=== PATIENT | female | born 1995 | race Caucasian/White ===

== ENCOUNTER 2017-03-15 12:02 | Emergency (ER) | payer BC, MEDICAID ==
[2017-03-15 13:24] VITALS: BP 119/70
[2017-03-15] MEDS ORDERED: Acetaminophen TAB* 325 MG PO ONE (13:39)
--- NOTE | 2017-03-15 13:50 | UC ---
Throat Pain/Nasal Daron HPI - HPI Summary HPI Summary: 22 yo female female with EGA of about 11 wks presents with a 2 week hx of sinus pressure pain/WOO/post nasal drip /cough/nausea and vomiting Has felt feverish at times no UTI symptoms Has had her first OB appt and is on PNVs NO SOB - History of Current Complaint Chief Complaint: UCGeneralIllness Stated Complaint: FLU SXS/3 MONTHS PREG. Time Seen by Provider: 03/15/17 13:26 Hx Last Menstrual Period: 10/21/16 and 11/05/16 Onset/Duration: Gradual Onset, Lasting Weeks Severity: Mild Pain Intensity: 6 Pain Scale Used: 0-10 Numeric Cough: Productive Associated Signs & Symptoms: Positive: Sinus Discomfort, Nasal Discharge, Fever , Vomiting - Epiglottits Risk Factors Epiglottis Risk Factors: Negative - Allergies/Home Medications Allergies/Adverse Reactions: Allergies Allergy/AdvReac Type Severity Reaction Status Date / Time Avocado Allergy Swelling Verified 03/15/17 13:24 Of Face,Lips,& Throat Banana Allergy Swelling Verified 03/15/17 13:24 Of Face,Lips,& Throat Carrot Oil Allergy Swelling Verified 03/15/17 13:24 Of Face,Lips,& Throat Eggs or Egg-derived Products Allergy GI Upset Verified 03/15/17 13:24 Latex Allergy Numbness Verified 03/15/17 13:24 And Tingling Emerson Flavor Allergy Swelling Verified 03/15/17 13:24 Of Face,Lips,& Throat Milk-related Compounds Allergy GI Upset Verified 03/15/17 13:24 Pineapple Allergy Swelling Verified 03/15/17 13:24 Of Face,Lips,& Throat Watermelon Flavor Allergy Swelling Verified 03/15/17 13:24 Of Face,Lips,& Throat pollen Allergy Sneezing Uncoded 03/15/17 13:24 tropical fruits Allergy Swelling Uncoded 03/15/17 13:24 Of Face,Lips,& Throat Home Medications: Home Medications Docosahexaenoic Acid [ Dha] 200 mg PO DAILY 03/15/17 [History Confirmed 03/15/17] PMH/Surg Hx/FS Hx/Imm Hx Previously Healthy: Yes Endocrine History Of: Denies: Diabetes Respiratory History Of: Reports: Bronchitis - Surgical History Surgical History: Yes Surgery Procedure, Year, and Place: tonsillectomy - Family History Known Family History: Positive: Hypertension Negative: Cardiac Disease, Diabetes - Social History Alcohol Use: None Substance Use Type: None Smoking Status (MU): Never Smoked Tobacco Type: Cigarettes When Did the Patient Quit Smoking/Using Tobacco: 10 weeks ago - Immunization History Most Recent Influenza Vaccination: sep 2016 Review of Systems Constitutional: Fever - audra Skin: Negative Eyes: Negative ENT: Dental Pain, Sore Throat, Nasal Discharge Respiratory: Cough Cardiovascular: Negative Gastrointestinal: Vomiting Genitourinary: Negative Motor: Negative Neurovascular: Negative Musculoskeletal: Negative Neurological: Headache Psychological: Negative All Other Systems Reviewed And Are Negative: Yes Physical Exam Triage Information Reviewed: Yes Appearance: Well-Appearing, No Pain Distress, Well-Nourished Vital Signs: Initial Vital Signs Temp 97.4 F 03/15/17 13:19 Pulse 82 03/15/17 13:19 Resp 16 03/15/17 13:19 BP 119/70 03/15/17 13:19 Pulse Ox 100 03/15/17 13:19 Vital Signs Reviewed: Yes Eyes: Positive: Conjunctiva Clear ENT: Positive: Hearing grossly normal, Pharyngeal erythema, Nasal congestion, Nasal drainage, TMs normal, Other: - bilat max sinus tenderness. Negative: TM bulging, TM dull, TM red, Tonsillar swelling, Tonsillar exudate, Trismus, Muffled/hoarse voice Dental: Negative: Gross Decay/Caries @, Dental Fracture @, Abscess @ Neck: Positive: Supple, Nontender, No Lymphadenopathy Respiratory: Positive: Chest non-tender, Lungs clear, Normal breath sounds, No respiratory distress, No accessory muscle use Cardiovascular: Positive: RRR, No Murmur. Negative: Bradycardia Musculoskeletal: Positive: ROM Intact, No Edema Neurological: Positive: Alert Psychological Exam: Normal Skin Exam: Normal Throat Pain/Nasal Course/Dx - Differential Dx/Diagnosis Provider Diagnoses: acute sinusitis Discharge - Discharge Plan Condition: Stable Disposition: HOME Prescriptions: Amoxicillin (*) [Amoxicillin 875 MG (*)] 875 mg PO BID #20 tab Patient Education Materials: Sinusitis (ED) Forms: *Work Release Referrals: No Primary Care Phys,NOPCP [Primary Care Provider] - Additional Instructions: rest tylenol recheck for new or worsening symptoms contact your OB for suggestion re cough/congestion and vomiting recheck for new or worsening symptoms continue pre vits
== END 2017-03-15 13:45 | disposition home or self-care (01) ==
LOC: UCCORT 12:02
DX: O26.891 Other specified pregnancy related conditions, first trimester (principal); J01.90 Acute sinusitis, unspecified; Z3A.11 11 weeks gestation of pregnancy; Z87.891 Personal history of nicotine dependence
CPT/HCPCS: 81003; 99212; A9270-GY; G0463